=== PATIENT | male | born 1990 | race Caucasian/White ===

== ENCOUNTER 2017-07-11 20:45 | Inpatient (IN) | payer MEDICAID, OTHER ==
[2017-07-11] MEDS ORDERED: HYDROmorphONE/DILAUDID 1 MG/ML INJ IVP ONE (22:00)
[2017-07-11] MEDS ORDERED: IOPAMIDOL (ISOVUE-300) 100 ML BTL ONE (22:15)
[2017-07-11] MEDS ORDERED: AMPICILLIN/SULBACTAM 3 GM in NS 100 ML IV ONE (23:16)
[2017-07-11 23:20] LABS: % IMMATURE GRANULYOCYTES 0.4 % (0.0-1.1); ABSOLUTE IMMATURE GRANULOCYTES 0.05 10^3/uL (0.00-0.10); ADD DIFF? NO; ADD MORPH? NO; ADD SCAN? NO; ATYPICAL LYMPHOCYTE FLAG 10 (0-99); FRAGMENT RBC FLAG 0 (0-99); HEMOGLOBIN 14.9 g/dL (13.7-17.5); LEFT SHIFT FLG 0 (0-99); LIPEMIA HEMOLYSIS FLAG 90 (0-99); MEAN CELL HEMOGLOBIN 29.6 pg (27.9-34.1); MEAN CELL HEMOGLOBIN CONCENTR. 34.7 g/dL (32.4-36.7); MEAN CELL VOLUME 85.3 fL (81.5-99.8); MEAN PLATELET VOLUME 10.6 fL (8.7-11.7); PLATELET CLUMPS FLAG 10 (0-99); PLATELET COUNT 182 10^3/uL (150-400); RED BLOOD CELL COUNT 5.04 10^6/uL (4.40-6.38); RED CELL DISTRIBUTION WIDTH 12.2 % (11.5-15.2)
[2017-07-11 23:27] LABS: ANION GAP 16 mEq/L (8-16); CALCIUM 9.3 mg/dL (8.5-10.4); CARBON DIOXIDE 24 mEq/l (22-31); CHLORIDE 98 mEq/L (97-110); GLOMERULAR FILTRATION RATE > 60; GLUCOSE 101 mg/dL (70-100); POTASSIUM 4.4 mEq/L (3.5-5.2); SODIUM 138 mEq/L (134-144)
--- NOTE | 2017-07-11 23:40 | EDPHY ---
H & P Stated Complaint: Tooth pain-fx in past and no f/u HPI/ROS: Chief complaint: Tooth pain History of present illness: This is a 27-year-old male who presents to the emergency department for evaluation of tooth pain. Patient reports he has had a long history of tooth pain. However over the last 4 days he has had increasing pain in the right, lower aspect of his jaw. He is treating with over -the-counter ibuprofen with minimal relief. Pain continues to progress. He is having some trouble swallowing. He denies other associated signs or symptoms including no fevers, no difficulty opening or closing the mouth, no drooling, no hoarseness. Review of systems: A 10 point review of systems was obtained and other than described above was negative - Personal History Current Tetanus Diphtheria and Acellular Pertussis (TDAP): Yes - Medical/Surgical History Hx Asthma: No Hx Chronic Respiratory Disease: No Hx Diabetes: No Hx Cardiac Disease: No Hx Renal Disease: No Hx Cirrhosis: No Hx Alcoholism: No Hx HIV/AIDS: No Hx Splenectomy or Spleen Trauma: No Other PMH: R hand, L hand - Social History Smoking Status: Never smoked - Physical Exam Exam: General Appearance: Alert, nontoxic. Eyes: Pupils equal and round no pallor or injection. ENT, Mouth: Tympanic membranes, external auditory canals, external ears and surrounding soft tissue including over the mastoids are unremarkable. Nasopharynx is not injected. There is no rhinorrhea. Oropharynx is not injected. There is no edema. There is no exudate. There is no trace edema to the right side of the oropharynx. The uvula is midline. No elevation of the tongue. There is no hoarseness, no drooling, no trismus, no stridor. There is tenderness to the submental space. Respiratory: There are no retractions, lungs are clear to auscultation. Cardiovascular: Regular rate and rhythm. Gastrointestinal: Abdomen is soft and non tender, no masses, bowel sounds normal. Neurological: Alert and oriented x4. No meningismus. Skin: Warm and dry, no rashes. Mild erythema and edema to the right side of the jaw. Musculoskeletal: Neck is supple non tender. Extremities are symmetrical, full range of motion. Psychiatric: Patient is oriented X 3, there is no agitation. Constitutional: Initial Vital Signs Temperature (C) 37.1 C 07/11/17 20:47 Heart Rate 78 07/11/17 20:47 Respiratory Rate 16 07/11/17 20:47 Blood Pressure 142/90 H 07/11/17 20:47 O2 Sat (%) 96 07/11/17 20:47 O2 Delivery Mode Room Air Allergies/Adverse Reactions: No Known Allergies Allergy (Unverified 07/11/17 20:47) Home Medications: Medication Instructions Recorded Ibuprofen 07/11/17 Medical Decision Making - Diagnostics Imaging: Discussed imaging studies w/ chemical etching processor Radiologist ED Course/Re-evaluation: Patient seen under the supervision of my primary supervising physician Dr. Nahomi Hale. Patient presents to the emergency department for tooth pain in the right lower aspect of his jaw. There is subtle edema to the right side of the jaw. Tenderness in the submental space Given these findings a CT scan is obtained and is concerning for phlegmon at the base of the tongue with some displacement of the tongue. I am Am concerned that this could progress to more serious infection. Blood studies and blood cultures obtained. Patient started on 3 g of IV Unasyn. ENT, Dr. Torre is consulted. He agrees with Unasyn 3 g every 8 hr and Decadron 10 mg every 8 hr, he will see patient in the morning. Patient is admitted to the hospital under the care of Dr. Graciela Cruz. I have discussed the plan with the patient who voiced understanding and agreement with it. Differential Diagnosis: Included but not limited to dental airam, plastic surgery assistant abscess, deep space abscess including Rubens's angina - Data Points Laboratory Results: Laboratory Results 07/11/17 21:49 07/11/17 21:49 07/11/17 07/11/17 07/11/17 21:49 21:49 21:47 WBC 11.50 10^3/uL H 10^3/uL (3.80-9.50) RBC 5.04 10^6/uL 10^6/uL (4.40-6.38) Hgb 14.9 g/dL g/dL (13.7-17.5) POC Hgb 15.3 gm/dL gm/dL (13.7-17.5) Hct 43.0 % % (40.0-51.0) POC Hct 45 % % (40-51) MCV 85.3 fL fL (81.5-99.8) MCH 29.6 pg pg (27.9-34.1) MCHC 34.7 g/dL g/dL (32.4-36.7) RDW 12.2 % % (11.5-15.2) Plt Count 182 10^3/uL 10^3/uL (150-400) MPV 10.6 fL fL (8.7-11.7) Neut % (Auto) 80.4 % H % (39.3-74.2) Lymph % (Auto) 9.6 % L % (15.0-45.0) Kimball % (Auto) 9.0 % % (4.5-13.0) Eos % (Auto) 0.2 % L % (0.6-7.6) Baso % (Auto) 0.4 % % (0.3-1.7) Nucleat RBC Rel Count 0.0 % % (0.0-0.2) Absolute Neuts (auto) 9.25 10^3/uL H 10^3/uL (1.70-6.50) Absolute Lymphs (auto) 1.10 10^3/uL 10^3/uL (1.00-3.00) Absolute Monos (auto) 1.03 10^3/uL H 10^3/uL (0.30-0.80) Absolute Eos (auto) 0.02 10^3/uL L 10^3/uL (0.03-0.40) Absolute Basos (auto) 0.05 10^3/uL 10^3/uL (0.02-0.10) Absolute Nucleated RBC 0.00 10^3/uL 10^3/uL (0-0.01) Immature Gran % 0.4 % % (0.0-1.1) Immature Gran # 0.05 10^3/uL 10^3/uL (0.00-0.10) POC Sodium 140 mEq/L mEq/L (134-144) Sodium 138 mEq/L mEq/L (134-144) POC Potassium 4.0 mEq/L mEq/L (3.3-5.0) Potassium 4.4 mEq/L mEq/L (3.5-5.2) POC Chloride 101 mEq/L mEq/L (97-110) Chloride 98 mEq/L mEq/L (97-110) Carbon Dioxide 24 mEq/l mEq/l (22-31) Anion Gap 16 mEq/L mEq/L (8-16) POC BUN 17 mg/dL mg/dL (7-23) BUN 17 mg/dL mg/dL (7-23) Creatinine 1.0 mg/dL mg/dL (0.7-1.3) POC Creatinine 1.1 mg/dL mg/dL (0.7-1.3) Estimated GFR > 60 Glucose 101 mg/dL H mg/dL (70-100) POC Glucose 102 mg/dL H mg/dL (70-100) Calcium 9.3 mg/dL mg/dL (8.5-10.4) Medications Given: Discontinued Medications Hydromorphone HCl (Dilaudid) 0.5 mg IVP EDNOW ONE Stop: 07/11/17 22:01 Last Admin: 07/11/17 22:08 Dose: 0.5 mg Point of Care Test Results: 07/11/17 21:47 POC Sodium 140 POC Potassium 4.0 POC Chloride 101 POC BUN 17 POC Creatinine 1.1 POC Glucose 102 H Departure - Departure Disposition: [facility] Inpatient Acute Clinical Impression: Ludwigs angina Condition: Fair Referrals: NONE *PRIMARY CARE P,. [Primary Care Provider] - As per Instructions
[2017-07-11] MEDS ORDERED: KETOROLAC 15 MG/1 ML SDV IVP ONE (23:46)
[2017-07-11] MEDS ORDERED: DEXAMETHASONE 10 MG/ML VIAL IVP ONE (23:55)
[2017-07-12] MEDS ORDERED: ACETAMINOPHEN 500 MG TAB ONE (00:19)
[2017-07-12] MEDS ORDERED: ACETAMINOPHEN 500 MG TAB PO ONE (00:20)
[2017-07-12] MEDS ORDERED: ACETAMINOPHEN 325 MG TAB PO PRN (00:31)
[2017-07-12] MEDS ORDERED: ACETAMINOPHEN 650 MG SUPP PR PRN (00:31)
[2017-07-12] MEDS ORDERED: ONDANSETRON 4 MG/2 ML VIAL IVP PRN (00:31)
[2017-07-12] MEDS: LR 1,000 ML IV SCH ×3 (01:19→21:26)
--- NOTE | 2017-07-12 03:18 | GHP ---
[f rep st] HISTORY AND PHYSICAL DATE OF ADMISSION: 07/11/2017 DATE OF SERVICE: 07/12/17 SOURCE: Patient provides history, appears reliable. CHIEF COMPLAINT: Jaw pain. HISTORY OF PRESENT ILLNESS: This is a very pleasant 27-year-old gentleman with no significant past medical history, presents to the emergency department today with complaints of 4-day history of worsening submandibular and neck pain. Patient is concerned for a dental infection. He has also been experiencing significant fevers and chills, as well as some rigors reported at home. Patient states that he has been having progressive odynophagia and swelling. He denies any shortness of breath, or aspiration or choking events. Patient reports that he has been unable to eat or drink secondary to significant pain. Patient did attempt to take some ibuprofen at home that did not improve his symptoms. He continued to have fevers and so presented to the emergency department. REVIEW OF SYSTEMS: GENERAL: Positive for fevers, chills with rigors and sweats. SKIN: Patient denies any acute rashes, sores. Some erythema in his face. ENT: Patient reports a dry, congested nose, odynophagia as noted above. CV: Patient denies any chest pain, palpitations. RESPIRATORY: No shortness of breath or cough. GI: No nausea, vomiting, abdominal pain, or diarrhea. : No dysuria or hematuria. MUSCULOSKELETAL: Patient denies any acute or chronic joint or pain or myalgias. NEURO: Patient does report intermittent headaches, more frequent recently. No numbness or tingling. PSYCH: denies any anxiety, depression. Remainder of remainder review of systems negative except as noted above. ALLERGIES: No known drug allergies. HOME MEDICATIONS: Ibuprofen p.r.n. PAST MEDICAL HISTORY: Patient denies. PAST SURGICAL HISTORY: Significant for right hand and shoulder arthroscopy. FAMILY HISTORY: Denies known diabetes, hypertension. SOCIAL HISTORY: Patient currently living with his sister. He does not smoke, drink, or do drugs. CODE STATUS: Full. Patient without advance directives, but desires his mother to act as proxy if needed. PHYSICAL EXAMINATION: VITALS: Upon arrival to the emergency department, blood pressure 142/90, heart rate 78, respiratory rate 16, O2 sat 96% on room air, with a temperature 37.1 with a T-max of 39.0. Current vitals: Blood pressure 116/59, heart rate 87, respiratory rate 18, O2 sat percent 94% on room air, with temperature 38.1. GENERAL: No acute distress, pleasant, young adult male , is lying quietly in bed. Does appear a little bit uncomfortable with movement and during exam of his neck, otherwise no acute distress. HEAD: Normocephalic, atraumatic. EYES: Extraocular muscles are intact. Pupils equal , round, react to light bilaterally and symmetric. No scleral icterus or conjunctival injection. ENT: Mucous membranes appear slightly dry. Patient does have some limited ability to open his mouth secondary to complaints of pain. There is a minimal amount of erythema in the posterior oropharynx. Dentition is in good condition. NECK: Supple, but patient does have noted swelling and tenderness to palpation below the mandible and on the right neck. No cervical or postauricular lymphadenopathy noted. CV: Regular rate and rhythm. No murmurs, rubs, or gallops appreciated. RESPIRATORY: Lungs are clear to auscultation bilaterally. No wheezes, rales, or rhonchi. Unlabored breathing. ABDOMEN: Positive bowel sounds. Soft, nontender to palpation. No rebound, guarding, or masses appreciated. : No Chatman in place. No suprapubic tenderness to palpation. EXTREMITIES: No cyanosis, clubbing, or edema. Patient with 2+ pedal pulses bilaterally and symmetric. Cap refill less than 2 seconds. NEURO: Cranial nerves grossly nonfocal. No facial drooping. Moves all extremities. PSYCH: Thought process, content, questions are appropriate. Patient is awake, alert, and oriented x4. LABORATORY STUDIES: 1. WBC 11.5, H and H 14.9/43.0, MCV of 85.3, platelet count is 182, neutrophil percent 80.4, no bands. 2. Sodium is 138, potassium is 4.4, chloride 98, CO2 is 24, BUN is 17, creatinine is 1.0, anion gap 16, glucose 101, estimated GFR of greater than 60, calcium 9.3. 3. Blood cultures x2 pending. IMAGING REPORTS: CT neck: Limited imaging available, reviewed, as well as CT report showing low-attenuation area adjacent to the medial margin of the mandible in the high cervical region, appearance of inflammatory focus phlegmon without filipe abscess formation at this time. ASSESSMENT AND PLAN: Pleasant 27-year-old gentleman who presents with complaints of right lower jaw pain. 1. Submandibular space infection with phlegmon formation and no filipe abscess. Patient has been started on Unasyn, will continue 3 g q.8 and Decadron 4 mg q.8 as well. ENT was consulted from the emergency department, will see the patient later this morning. Patient currently without any evidence of airway compromise and will monitor on a pulse oximeter. 2. Odynophagia. Patient reports morphine has significantly improved his pain but is not very long lasting. Will continue p.r.n. while patient is n.p.o. Additionally, patient received dose of Toradol, is currently on steroids. Will also add Ativan p.r.n. for any pain control. 3. Fever, currently improved. Tylenol p.r.n. 4. Fluid, electrolyte, nutrition. Continue with IV fluids overnight while patient is n.p.o. He does appear a little bit dehydrated. LR at 125 per hour overnight. Monitor electrolytes. Replace if needed. N.p.o. until evaluated by ENT. 5. Prophylaxis. Sequential compression devices only. Holding anticoagulation pending surgical evaluation. 6. Code status is full. Patient desires his mother to act as proxy if needed. 7. Disposition. Patient has been admitted to observation status on the medical floor at this time, pending surgical recommendations. /[id number]/MODL MTDD
[2017-07-12 04:51] LABS: % IMMATURE GRANULYOCYTES 0.6 % (0.0-1.1); ABSOLUTE IMMATURE GRANULOCYTES 0.07 10^3/uL (0.00-0.10); ADD DIFF? NO; ADD MORPH? NO; ADD SCAN? NO; ATYPICAL LYMPHOCYTE FLAG 0 (0-99); FRAGMENT RBC FLAG 0 (0-99); HEMATOCRIT 44.1 % (40.0-51.0); HEMOGLOBIN 14.7 g/dL (13.7-17.5); LEFT SHIFT FLG 0 (0-99); LIPEMIA HEMOLYSIS FLAG 80 (0-99); MEAN CELL HEMOGLOBIN 29.3 pg (27.9-34.1); MEAN CELL HEMOGLOBIN CONCENTR. 33.3 g/dL (32.4-36.7); MEAN CELL VOLUME 87.8 fL (81.5-99.8); MEAN PLATELET VOLUME 10.3 fL (8.7-11.7); PLATELET CLUMPS FLAG 0 (0-99); PLATELET COUNT 170 10^3/uL (150-400); RED BLOOD CELL COUNT 5.02 10^6/uL (4.40-6.38); RED CELL DISTRIBUTION WIDTH 12.1 % (11.5-15.2)
[2017-07-12 05:08] LABS: ANION GAP 13 mEq/L (8-16); CALCIUM 9.3 mg/dL (8.5-10.4); CARBON DIOXIDE 24 mEq/l (22-31); CHLORIDE 104 mEq/L (97-110); CREATININE 1.1 mg/dL (0.7-1.3); GLOMERULAR FILTRATION RATE > 60; GLUCOSE 102 mg/dL (70-100); SODIUM 141 mEq/L (134-144)
[2017-07-12] MEDS: DEXAMETHASONE 4 MG/ML VIAL IVP SCH ×3 (07:54→23:15)
[2017-07-12] MEDS: AMPICILLIN/SULBACTAM 3 GM in NS 100 ML IV SCH ×3 (07:54→23:14)
[2017-07-12] MEDS ORDERED: ALBUTEROL 200 PUFFS/18 GM MDI IH PRN (09:58)
--- NOTE | 2017-07-12 10:02 | HOSPPROG ---
Hospitalist Progress Note Assessment/Plan: 27 yo admitted with right jaw pain and found to have infection at the angle of the mandible likely from a tooth infection. Discussed with Dr. Torre. Given the severity of his symptoms will need ongoing IV antibiotics requiring greater than 2 midnight stay # Mandibular infection without filipe abscess * Continue IV Unasyn and steroids * transition to PO augmentin tomorrow and then discharge home if continues to do well * FU with Dr. Torre on Friday * FU with oral surgery on Friday or Friday. Subjective: still with sigificant pain, had a fever last night. no n/v/d, no rash. pt new to me and chart reviewed Objective: Vital Signs Temp Pulse Resp BP Pulse Ox 36.3 C 57 L 16 111/71 95 07/12/17 07:31 07/12/17 07:31 07/12/17 07:31 07/12/17 07:31 07/12/17 07:31 Laboratory Results 07/12/17 04:13 07/12/17 04:13 07/11/17 07/12/17 07/13/17 05:59 05:59 05:59 Intake Total 300 600 Output Total 200 Balance 100 600 - Physical Exam Constitutional: no apparent distress, appears nourished Eyes: PERRL Ears, Nose, Mouth, Throat: moist mucous membranes, hearing normal, other ( tenderness right side of neck, minimal swelling and erythema) Cardiovascular: regular rate and rhythym Respiratory: no respiratory distress, no rales or rhonchi Gastrointestinal: normoactive bowel sounds, soft, non-tender abdomen Skin: warm Neurologic: AAOx3 Psychiatric: interacting appropriately ICD10 Worksheet Patient Problems: Problems Problem Status Onset Ludwigs angina Acute
--- NOTE | 2017-07-12 10:25 | GCON ---
[f rep st] CONSULTATION DATE OF CONSULTATION: 07/12/2017 CHIEF COMPLAINT: Phlegmon right submandibular region. HISTORY OF PRESENT ILLNESS: This 27-year-old male noted a crack in a right posterior molar a few mon ths ago. This has not been addressed. Over the past few days, he has noted increasing pain in the r ight submandibular region. He presented to the emergency room last night. At that point, a CT was p erformed, which revealed a phlegmon in the submandibular region, medial to the mandible. I was asked to consult. PAST MEDICAL HISTORY: Otherwise unremarkable. He has undergone prior shoulder surgery, and he suffe rs from asthma, for which he uses an inhaler on a p.r.n. basis. REVIEW OF SYSTEMS: Otherwise unremarkable for cardiac, pulmonary, hematologic symptoms. EXAMINATION: GENERAL: Patient is an alert, cooperative male, in no apparent distress. VITAL SIGNS: Temperature is 36.3, blood pressure 111/71, pulse is 57. Respirations were 16. ENT: The tympanic membranes, middle ears and external auditory canals were within normal limits. Nasal exam was unrem arkable. Nasal airway was widely patent. Oral cavity and oropharynx exam were grossly within normal limits, except for a fracture and large caries in the region of tooth #31. The floor mouth was erlinda sly within normal limits on examination. Palpation of the neck revealed tenderness in the right submandibular region, more significantly anter iorly. The remainder of the neck was without mass or adenopathy. Bimanual palpation revealed mild f ullness on the floor of mouth without significant swelling or pressure being applied to the tongue. Excellent tongue mobility was noted and the airway was widely patent. ASSESSMENT: It is my impression that the patient is suffering from a phlegmon in the right submandib ular region. His white count when he presented was 11.5, 84% neutrophils were noted. He has been re ceiving IV Unasyn and steroids. He states that the pain is stabilized, and is no longer worsening. PLAN: At this point is to proceed with IV Unasyn 3 g q.8 hours for the next 24-36 hours. Thereafter , he will be discharged on oral Augmentin and a rapidly tapering dose of oral steroid. He was encour aged to follow up with his dentist as soon as possible, and he is to follow up with me later on this week for recheck. In the mean time, I will be re-contacted and re-consulted should the pain/swelling worsen. /[id number]/MODL
[2017-07-12] MEDS: HYDROCODONE/APAP 5/325 TAB PO PRN ×3 (12:43→21:38)
--- NOTE | 2017-07-12 17:20 | PDMN ---
Medical Necessity Medical necessity: Pt meets INPT criteria per MD as of 07/12/17; est. LOS >2 MN for ongoing eval/mgmt of mandibular infection requiring IVABx, steroids per MD progress note.
[2017-07-12] MEDS ORDERED: KETOROLAC 15 MG/1 ML SDV IVP ONE (21:15)
--- NOTE | 2017-07-12 21:15 | HOSPPROG ---
Hospitalist Progress Note Assessment/Plan: Called to bedside for increased pain and swelling in throat that started a few hours ago. #Submandibular phlegmon: -airway patent, normal oxygen saturations -spoke with Dr. Mccain with ENT, no repeat imaging warranted now. She will see in morn -cont IV Unasyn, steroids Time spent on visit: 30 min reviewing labs, imaging, examining pt and d/w Dr. Mccain Objective: Vital Signs Temp Pulse Resp BP Pulse Ox 36.9 C 63 17 138/82 H 96 07/12/17 19:22 07/12/17 19:22 07/12/17 19:22 07/12/17 19:22 07/12/17 19:22 07/11/17 07/12/17 07/13/17 05:59 05:59 05:59 Intake Total 1350 Balance 1350 - Physical Exam Constitutional: uncomfortable, other (anxious) Eyes: PERRL Ears, Nose, Mouth, Throat: moist mucous membranes, other (patent airway, no exudate. Able to move tongue without difficulty. Floor of mouth without swelling. Mild right submandibular TTP) Cardiovascular: regular rate and rhythym Respiratory: no respiratory distress Gastrointestinal: normoactive bowel sounds Neurologic: AAOx3 Psychiatric: anxious ICD10 Worksheet Patient Problems: Problems Problem Status Onset Ludwigs angina Acute
[2017-07-12] MEDS: LORazepam 2 MG/ML INJ IVP PRN (21:25)
[2017-07-13] MEDS: KETOROLAC 15 MG/1 ML SDV IVP SCH ×5 (03:58→23:32)
[2017-07-13] MEDS: DEXAMETHASONE 4 MG/ML VIAL IVP SCH ×3 (07:53→23:31)
[2017-07-13] MEDS: AMPICILLIN/SULBACTAM 3 GM in NS 100 ML IV SCH ×3 (07:55→20:11)
[2017-07-13] MEDS: HYDROCODONE/APAP 5/325 TAB PO PRN ×4 (08:02→23:29)
[2017-07-13] MEDS: LORazepam 2 MG/ML INJ IVP PRN (09:32)
[2017-07-13] MEDS: LR 1,000 ML IV SCH (09:39)
--- NOTE | 2017-07-13 10:24 | ASMTCMCOM ---
CM Note CM Note Notes: Patient admitted with submandibular plegmon. On IV Unasyn, plan to transition to oral antibiotics and short course of steroids. Will need to follow up with ENT and dentist upon discharge. Patient lives with his sister and will be independent upon discharge. CM available for any needs Date Signed: 07/13/2017 10:23 AM Electronically Signed By:Victorina Mccurdy RN
--- NOTE | 2017-07-13 10:39 | HOSPPROG ---
Hospitalist Progress Note Assessment/Plan: 27 yo admitted with right jaw pain and found to have infection at the angle of the mandible likely from a tooth infection. Discussed with Dr. Torre. Given the severity of his symptoms will need ongoing IV antibiotics requiring greater than 2 midnight stay # Mandibular infection without filipe abscess. Continues to have trouble swallowing, no change since admission. Was slightly worse last night. * Continue IV Unasyn and steroids. * transition to PO augmentin when symptoms stable. Then discharge home on augmentin if continues to do well * FU with Dr. Torre on Friday * FU with oral surgery on Friday or Friday. Subjective: complained of more difficulty swallowing last night, no trouble breathing. trouble swallowing liquids and solids. Objective: Vital Signs Temp Pulse Resp BP Pulse Ox 36.4 C 55 L 16 118/70 97 07/13/17 08:20 07/13/17 08:20 07/13/17 08:20 07/13/17 08:20 07/13/17 08:20 07/12/17 07/13/17 07/14/17 05:59 05:59 05:59 Intake Total 2850 Output Total 1000 Balance 2850 -1000 - Physical Exam Constitutional: uncomfortable Eyes: PERRL, anicteric sclera, EOMI Ears, Nose, Mouth, Throat: moist mucous membranes, other (tenderness right neck with minimal swelling.) Cardiovascular: regular rate and rhythym Respiratory: no respiratory distress, No expiratory wheeze, No inspiratory crackles, No bronchial breath sounds Gastrointestinal: normoactive bowel sounds, soft, non-tender abdomen Genitourinary: no bladder fullness, No warren in urethra Skin: warm Musculoskeletal: full muscle strength Neurologic: AAOx3 ICD10 Worksheet Patient Problems: Problems Problem Status Onset Ludwigs angina Acute
[2017-07-14 00:19] VITALS: O2SAT 94
[2017-07-14] MEDS: AMPICILLIN/SULBACTAM 3 GM in NS 100 ML IV SCH ×2 (03:14→08:57)
[2017-07-14 04:08] LABS: HEMATOCRIT 37.7 % (40.0-51.0); HEMOGLOBIN 13.1 g/dL (13.7-17.5); MEAN CELL HEMOGLOBIN 30.3 pg (27.9-34.1); MEAN CELL HEMOGLOBIN CONCENTR. 34.7 g/dL (32.4-36.7); MEAN CELL VOLUME 87.3 fL (81.5-99.8); RED BLOOD CELL COUNT 4.32 10^6/uL (4.40-6.38); RED CELL DISTRIBUTION WIDTH 12.1 % (11.5-15.2)
[2017-07-14] MEDS: HYDROCODONE/APAP 5/325 TAB PO PRN ×2 (04:28→10:21)
[2017-07-14 04:46] LABS: ANION GAP 10 mEq/L (8-16); CALCIUM 8.6 mg/dL (8.5-10.4); CARBON DIOXIDE 26 mEq/l (22-31); CHLORIDE 105 mEq/L (97-110); CREATININE 0.8 mg/dL (0.7-1.3); GLOMERULAR FILTRATION RATE > 60; GLUCOSE 124 mg/dL (70-100); POTASSIUM 4.4 mEq/L (3.5-5.2); SODIUM 141 mEq/L (134-144)
[2017-07-14] MEDS: KETOROLAC 15 MG/1 ML SDV IVP SCH (06:56)
[2017-07-14 08:56] VITALS: BP 115/73; PULSE 57; RESP 18; TEMP 98.2
[2017-07-14] MEDS: DEXAMETHASONE 4 MG/ML VIAL IVP SCH (08:58)
--- NOTE | 2017-07-14 10:46 | GDS ---
[f rep st] DISCHARGE SUMMARY DIAGNOSIS: Mandibular infection without filipe abscess, likely dental in origin. CONSULTATIONS: ENT, Dr. Clarence Torre. PROCEDURES: Neck CT with contrast. Low attenuation area adjacent to the medial margin of the mandib le and the high cervical region, appearance of inflammation and phlegmon, without filipe abscess forma tion. HOSPITAL COURSE: The patient is a 27-year-old healthy young man who comes in with increasing swellin g and pain on the right side of his neck and mandible. Neck CT had the above findings. It was felt that he likely had a dental issue causing this phlegmon and infection in his mandible. He was starte d on IV antibiotics and steroids. Over the course of his hospitalization, his symptoms improved. Ho wever, he continues to have the dental issue and needs close followup with an oral surgeon. At the t grace of discharge, I did switch him from IV Unasyn to Augmentin and set him up with followup with Dr. Ash Chatman and oral surgeon locally. He also is to follow up with Dr. Torre on Friday. CONDITION ON DISCHARGE: Good. Vital signs are stable. He is afebrile. Heart rate 57, blood pressu re 115/73. He is 94% on room air. He is alert and oriented. He has minimal swelling and no evidenc e of tongue swelling or airway obstruction. DISCHARGE MEDICATIONS: Please see discharge medication form. Followup will be with Dr. Ash Chatman to and Dr. Clarence Torre on Friday. Total time spent with patient on day of discharge and coordination of care is 35 minutes. /[id number]/MODL
--- NOTE | 2017-07-14 11:43 | ASDISCHSUM ---
Discharge Information Plan Status:Home with No Needs Medically Cleared to Leave: Discharge Date:07/14/2017 10:29 AM CM D/C Disposition:Home, Routine, Self-Care ADT D/C Disposition:Home, Routine, Self-Care Projected Discharge Date:07/14/2017 10:29 AM Transportation at D/C:Friend Discharge Delay Reason: Follow-Up Date:07/14/2017 10:29 AM Discharge Slot: Final Diagnosis: Placement Information Patient Contact Information Contact Name:AMPAROJUANITA Relationship:Mother Address:[address] [place] [address] City:[place] Alternate Phone: [facility]/Zip Code:[place] [address] Email: Financial Information Financial Class: Primary Plan Desc:[employer] [place] Primary Plan Number:[id number] Secondary Plan Desc: Secondary Plan Number: Assessment Information [facility] CM Progress Note CM Note CM Note Notes: Patient admitted with submandibular plegmon. On IV Unasyn, plan to transition to oral antibiotics and short course of steroids. Will need to follow up with ENT and dentist upon discharge. Patient lives with his sister and will be independent upon discharge. CM available for any needs Date Signed: 07/13/2017 10:23 AM Electronically Signed By:Victorina Mccurdy RN Intervention Information
== END 2017-07-14 10:29 | disposition home or self-care (01) | DRG 159 ==
LOC: F2W 07-12 00:41 → OBSVTOIN 07-12 13:15
PROVIDERS: ADMIT Family Medicine; ATTEND Internal Medicine
DX: K12.2 Cellulitis and abscess of mouth (principal); K08.89 Other specified disorders of teeth and supporting structures
CPT/HCPCS: 82947-QW; 96365; J0295; J1100; J1170; J1200; J1885; J2060; Q9967